=== PATIENT | female | born 1985 | race Caucasian/White ===

== ENCOUNTER 2016-06-19 13:06 | Emergency (ER) | payer BC, OTHER ==
[2016-06-19 14:53] VITALS: BP 133/81
--- NOTE | 2016-06-19 15:24 | UC ---
Skin Complaint HPI - HPI Summary HPI Summary: thinks she has lice. 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 Has had an itchy scalp for past 2 weeks, today found a bug on hair that looked like lice. - History of Current Complaint Chief Complaint: UCSkin Time Seen by Provider: 06/19/16 15:03 Stated Complaint: ITCHY SCALP Hx Obtained From: Patient Hx Last Menstrual Period: 06/09/15 Onset/Duration: Gradual Onset, Lasting Weeks - 2 Timing: Constant Onset Severity: Mild Current Severity: Mild Location: Other - scalp Character: Pruritus Aggravating: Nothing Alleviating: Nothing Associated Signs & Symptoms: Positive: Negative - Allergy/Home Medications Allergies/Adverse Reactions: Allergies Allergy/AdvReac Type Severity Reaction Status Date / Time No Known Allergies Allergy Verified 06/19/16 14:52 Review of Systems Constitutional: Negative Skin: Other - scalp itching Eyes: Negative ENT: Negative Respiratory: Negative Cardiovascular: Negative Gastrointestinal: Negative Genitourinary: Negative Motor: Negative Neurovascular: Negative Musculoskeletal: Negative Neurological: Negative Psychological: Negative All Other Systems Reviewed And Are Negative: Yes PMH/Surg Hx/FS Hx/Imm Hx - Additional Past Medical History Additional PMH: gets hives with stress Endocrine History Of: Denies: Diabetes, Thyroid Disease, Hyperthyroidism, Hypothyroidism, Dyslipidemia Cardiovascular History Of: Denies: Cardiac Disorders, Hypertension, Pacemaker/ICD, Myocardial Infarction , Congestive Heart Failure, Atrial Fibrillation, Deep Vein Thrombosis, Bleeding Disorders Respiratory History Of: Denies: COPD, Asthma, Bronchitis, Pneumonia, Pulmonary Embolism GI/ History Of: Denies: Gastroesophageal Reflux, Ulcer, Gastrointestinal Bleed, Gall Bladder Disease, Kidney Stones, Diverticulitis, Renal Disease, Urosepsis Neurological History Of: Denies: TIA, CVA, Dementia, Seizures, Migraine Psychological History Of: Reports: Anxiety Denies: Depression, Bipolar Disorder, Schizophrenia, Post Traumatic Stress Disorder Cancer History Of: Denies: Lung Cancer, Colorectal Cancer, Breast Cancer, Prostate Cancer, Cervical Cancer Other History Of: Negative For: HIV, Hepatitis B, Hepatitis C, Anticoagulant Therapy - Surgical History Surgical History: None Surgery Procedure, Year, and Place: wisdom teeth 2005 - Family History Known Family History: Positive: Hypertension - Social History Occupation: Employed Full-time - teacher, elementary Lives: With Family Alcohol Use: Occasionally Substance Use Type: None Smoking Status (MU): Never Smoked Tobacco Physical Exam Triage Information Reviewed: Yes Appearance: Well-Appearing, No Pain Distress, Well-Nourished Vital Signs: Initial Vital Signs Temp 98.9 F 06/19/16 14:43 Pulse 72 06/19/16 14:43 Resp 16 06/19/16 14:43 BP 133/81 06/19/16 14:43 Pulse Ox 100 06/19/16 14:43 Vital Signs Reviewed: Yes Eye Exam: Normal Neck exam: Normal Respiratory Exam: Normal Cardiovascular Exam: Normal Musculoskeletal Exam: Normal Neurological Exam: Normal Psychological Exam: Normal Skin Exam: Other - I do see what appear to be nits mid-shaft on some of her hair. No live bugs seen, but she says she did see Course/Dx - Diagnoses Provider Diagnoses: head lice Discharge - Discharge Plan Condition: Stable Disposition: HOME Prescriptions: Permethrin [Bedding [place] Lice Treatm] 0.5 % XX ONCE #1 aer Permethrin & Nit Remover [Nix Complete Lice Treatme 1 & 0.25 %] 1 kit CO ONCE # 2 kit Patient Education Materials: Pediculosis (ED) Referrals: Non Staff,Doctor [Primary Care Provider] -
== END 2016-06-19 15:28 | disposition home or self-care (01) ==
LOC: UCCORT 13:06
DX: B85.0 Pediculosis due to Pediculus humanus capitis (principal)
CPT/HCPCS: 99212; G0463

== ENCOUNTER 2017-05-02 09:30 | Emergency (ER) | payer BC ==
[2017-05-02 10:34] VITALS: BP 121/61
--- NOTE | 2017-05-02 11:04 | UC ---
Respiratory Complaint HPI - HPI Summary HPI Summary: Cough and congestion for about 10 days and then she developed right eye redness and crusting today. No sinus pain and no fever. - History of Current Complaint Chief Complaint: UCRespiratory Stated Complaint: RT EYE RED/COLD CYMPTOMS Time Seen by Provider: 05/02/17 10:37 Hx Obtained From: Patient Hx Last Menstrual Period: 04/09/17 ?: No Onset/Duration: Gradual Onset Timing: Constant Severity Initially: Mild Severity Currently: Mild Character: Cough: Nonproductive Aggravating Factors: Deep Breaths, Recumbent Position Alleviating Factors: Nothing Associated Signs And Symptoms: Positive: URI, Nasal Congestion. Negative: Dyspnea, Fever, Chills, Pleuritic Chest Pain, Wheezing, Hemoptysis, Dizziness, Calf Pain, Calf Swelling - Allergies/Home Medications Allergies/Adverse Reactions: Allergies Allergy/AdvReac Type Severity Reaction Status Date / Time No Known Allergies Allergy Verified 05/02/17 10:25 Home Medications: Home Medications Escitalopram Oxalate [Lexapro 20 mg] 20 mg PO DAILY 05/02/17 [History Confirmed 05/02/17] Ibuprofen [Ibuprofen 200] 400 mg PO ONCE PRN 05/02/17 [History Confirmed ] [id number] W/ APAP [Delsym Cough + Cold D... [id number] mg/10Ml] 1 liq PO BEDTIME 05/02/17 [History Confirmed 05/02/17] Pseudoephedrine TAB* [Sudafed TAB*] 30 mg PO Q6H PRN 05/02/17 [History Confirmed 05/02/17] busPIRone TAB* [Buspar TAB*] 5 mg PO DAILY 05/02/17 [History Confirmed 05/02/17] hydrOXYzine HCL TAB* [Atarax 10 MG TAB*] 10 mg PO TID PRN 05/02/17 [History Confirmed 05/02/17] PMH/Surg Hx/FS Hx/Imm Hx Previously Healthy: Yes Other History Of: Negative For: HIV, Hepatitis B, Hepatitis C, Anticoagulant Therapy - Surgical History Surgical History: Yes Surgery Procedure, Year, and Place: wisdom teeth 2005 - Family History Known Family History: Positive: Hypertension - Social History Occupation: Employed Full-time Alcohol Use: None Substance Use Type: None Smoking Status (MU): Never Smoked Tobacco - Immunization History Most Recent Influenza Vaccination: not this season Review of Systems ENT: Sore Throat, Sinus Congestion Respiratory: Cough All Other Systems Reviewed And Are Negative: Yes Physical Exam Triage Information Reviewed: Yes Appearance: Well-Appearing, No Pain Distress, Well-Nourished Vital Signs: Initial Vital Signs Temp 98.3 F 05/02/17 10:30 Pulse 92 05/02/17 10:30 Resp 15 05/02/17 10:30 BP 121/61 05/02/17 10:30 Pulse Ox 100 05/02/17 10:30 Vital Signs Reviewed: Yes Eyes: Positive: Conjunctiva Inflamed. Negative: Discharge ENT: Positive: Pharyngeal erythema, Nasal congestion, TMs normal, Uvula midline. Negative: Nasal drainage, TM bulging, TM dull, TM red, Tonsillar swelling, Tonsillar exudate, Trismus, Muffled voice, Hoarse voice, Sinus tenderness Neck: Positive: Supple, Nontender, No Lymphadenopathy. Negative: Nuchal Rigidity Respiratory: Positive: Lungs clear, Normal breath sounds, No respiratory distress, No accessory muscle use. Negative: Respiratory distress, Decreased breath sounds, Accessory muscle use, Crackles, Rhonchi, Stridor, Wheezing Cardiovascular: Positive: RRR, No Murmur, Pulses Normal, Brisk Capillary Refill Abdomen Description: Positive: Nontender, No Organomegaly. Negative: Distended , Guarding Musculoskeletal: Positive: Strength Intact, ROM Intact, No Edema Neurological: Positive: Alert, Muscle Tone Normal. Negative: Fatigued Skin: Negative: rashes UC Diagnostic Evaluation - Laboratory O2 Sat by Pulse Oximetry: 100 Respiratory Course/Dx - Differential Dx/Diagnosis Provider Diagnoses: viral uri. bacterial conjunctivitis. Discharge - Discharge Plan Condition: Good Disposition: HOME Prescriptions: Ciprofloxacin 0.3% OPTH.YARELI* [Cipro 0.3% Opth*] 2 drop BOTH EYES Q4H #1 btl Patient Education Materials: Conjunctivitis (ED), Upper Respiratory Infection ( ED) Referrals: Non Staff,Doctor [Primary Care Provider] -
== END 2017-05-02 11:07 | disposition home or self-care (01) ==
LOC: UCCORT 09:30
DX: J06.9 Acute upper respiratory infection, unspecified (principal); H10.9 Unspecified conjunctivitis
CPT/HCPCS: 99212; G0463